=== PATIENT | male | born 1940 | race Caucasian/White ===

== ENCOUNTER → 2019-08-10 | Outpatient (CLI) | payer MEDICARE, BC ==
[~2019-08-10] MED LIST: FINA5TAB2 PO; NAPR220C14 PO; OMEP-218 PO
== END ==
LOC: M LABSMTC 10:30 → EDUNIT# 11:20
PROVIDERS: ATTEND Anesthesiology
DX: Z03.818 Encounter for observation for suspected exposure to other biological agents ruled out (principal); Z11.59 Encounter for screening for other viral diseases
CPT/HCPCS: C9803; U0003

== ENCOUNTER 2019-08-13 12:11 | Day surgery (SDC) | payer MEDICARE, BC, OTHER ==
[~2019-08-13] VITALS: Ht 172.7 cm; Wt 81.1 kg
[~2019-08-13 12:11] MED LIST changes: +LR 1,000 ML IV ONE; +MIDAZOLAM INJ 2MG/2ML VIAL (J2250 PER 1MG) As Ordered ONE; +ONDANSETRON 4MG/2ML VIAL As Ordered ONE; +ceFAZolin SOD 2 GM in IV 1 EA IV ONE; +fentaNYL 100 MCG/2 ML INJECTION (J3010) As Ordered ONE; +propofoL 500 MG/50 ML VIAL As Ordered ONE
[2019-08-13] MEDS ORDERED: LIDOCAINE 1% SDV 30ML VIAL As Ordered ONE (14:08)
[2019-08-13 16:22] VITALS: BP 153/85
--- NOTE | 2019-08-14 06:14 | RO ---
DATE OF PROCEDURE: 08/13/2019 PREOPERATIVE DIAGNOSIS: Unexplained syncope. POSTOPERATIVE DIAGNOSIS: Unexplained syncope. FINDINGS: Unexplained syncope. PROCEDURE PERFORMED: Implantation of a [employer] implantable loop recorder. SURGEON: Guillermo Sosa MD ICT HELP DESK OFFICER: None. ANESTHESIA: Lidocaine 1% local, monitored anesthetic care. SPECIMENS: None. ESTIMATED BLOOD LOSS: Less than 1 mL. BLOOD PRODUCTS REPLACED: None. DRAINS: None. COMPLICATIONS: None. PROCEDURE DESCRIPTION: The patient was prepped and draped over the left anterior chest and sternum. Lidocaine 1% was used for local anesthestic. Incision was made with a #15 blade approximately at the left fourth interspace about inch lateral to the left parasternal border. The guide on the insertion tool was then placed into the incision and advanced in a left lateral-caudal direction parallel to the skin. The insertion tool was rotated 100 degrees. The plunger was then placed into the insertion tool and used to advance the loop recorder into the subcutaneous tissue. The plunger was then removed and then the insertion tool was removed leaving the loop recorder in the subcutaneous fat. The initial R wave amplitude measured 0.90 mV. The skin was then approximated temporarily using a subcuticular stitch consisting of #4-0 Biosyn. This was used to keep the incision line as close as possible while the Dermabond was applied. Three layers of Dermabond was applied. The Biosyn suture was then pulled through the incision line and removed entirely. The patient tolerated the procedure well without any immediate complications. The implantable loop recorded implanted was a [employer] Model LNQ11 with serial number [id number].
== END 2019-08-13 16:35 | disposition home or self-care (01) ==
LOC: M SDC 12:11
PROVIDERS: ATTEND Internal Medicine Cardiovascular Disease
DX: R55 Syncope and collapse (principal); K21.9 Gastro-esophageal reflux disease without esophagitis; N40.0 Benign prostatic hyperplasia without lower urinary tract symptoms; Z79.899 Other long term (current) drug therapy; Z88.5 Allergy status to narcotic agent
CPT/HCPCS: 33285; C1764; J0690; J2250; J2405; J3010